=== PATIENT | male | born 1970 | race Caucasian/White ===

== ENCOUNTER 2023-03-04 20:29 | Emergency (ER) | payer MEDICAID ==
[~2023-03-04] VITALS: Ht 180.3 cm; Wt 71.7 kg
[2023-03-04 20:40] VITALS: BP_SYST 140; PULSE 72; RESP 19; TEMP 97.5; O2SAT 98
[2023-03-04] MEDS ORDERED: LIDOCAINE PATCH 5% 1 EA TP ONE (22:15)
[2023-03-04] MEDS ORDERED: HYDROcodone/ACETAMIN 5-325 MG TAB (NORCO/ VICODIN) PO ONE (22:15)
[2023-03-04] MEDS ORDERED: CYCL10TA24 PO (23:37)
[2023-03-05] MEDS ORDERED: HYDROcodone/ACETAMIN 5-325 MG TAB (NORCO/ VICODIN) PO ONE (05:15)
[2023-03-05 09:33] VITALS: BP_SYST 122; PULSE 77; RESP 20; TEMP 98.5; O2SAT 99
== END 2023-03-05 08:00 | disposition home or self-care (01) ==
LOC: SED 20:29
DX: S43.402A Unspecified sprain of left shoulder joint, initial encounter (principal); I10 Essential (primary) hypertension; Z79.899 Other long term (current) drug therapy; X58.XXXA Exposure to other specified factors, initial encounter; Y93.89 Activity, other specified; Y92.89 Other specified places as the place of occurrence of the external cause; Y99.8 Other external cause status
CPT/HCPCS: 73030; 99285